=== PATIENT | female | born 1960 | race Caucasian/White ===

== ENCOUNTER 2018-05-29 18:53 | Emergency (ER) | payer SELFPAY, BC, MEDICAID ==
[2018-05-29] MEDS: IBUPROFEN 800 MG TAB PO (19:30)
[2018-05-29 20:11] LABS: URINE BLOOD (Dip) POC Negative (NEGATIVE); URINE GLUCOSE (Dip) POC Negative (NEGATIVE); URINE KETONES (Dip) POC Trace (NEGATIVE); URINE LEUKOCYTE EST (Dip) POC Trace (NEGATIVE); URINE NITRITE (Dip) POC Negative (NEGATIVE); URINE TOTAL PROTEIN POC Trace (NEGATIVE)
[2018-05-29 20:11] LABS: URINE PH (Dip) POC 7.5 (5.0-8.5)
== END 2018-05-29 22:05 | disposition home or self-care (01) ==
LOC: FTE 18:53
DX: M54.2 Cervicalgia (principal); M54.5 Low back pain
CPT/HCPCS: 72040; 72100; 73140; 81003; 81025; 99284-25